=== PATIENT | male | born 1965 | race African-American/Black ===

== ENCOUNTER 2019-01-25 01:53 | Emergency (ER) | payer MEDICAID ==
[~2019-01-25] VITALS: Ht 157.5 cm; Wt 49.9 kg
[2019-01-25 03:10] LABS: Albumin 3.8 g/dL (3.4-5.0); Calcium 8.8 mg/dL (8.5-10.1); Potassium 3.7 mmol/L (3.5-5.1)
[2019-01-25 03:13] LABS: BUN/Creatinine Ratio 4.8; Bilirubin, Total 0.6 mg/dL (0.2-1.0); Total Protein 8.4 g/dL (6.4-8.2)
[2019-01-25 03:17] LABS: Carbamazepine (Tegretol) < 0.5 ug/mL (4-12); Phenytoin (Dilantin) < 0.4 ug/mL (10-20)
[2019-01-25 03:41] LABS: Basophils # (auto) 0.1 uL; Basophils % (auto) 1.3 % (0.0-2.0); Eosinophils # (auto) 0.2 uL; Eosinophils % (auto) 3.6 % (0.0-7.0); Hematocrit 35.9 % (41.0-53.0); Hemoglobin 12.2 g/dL (13.5-17.5); Lymphocytes # (auto) 1.3 uL; Lymphocytes % (auto) 29.9 % (10.0-50.0); Mean Corpuscular Hemoglobin 31.9 pg (28.0-32.0); Mean Corpuscular Hgb Conc. 34.1 g/dL (32.0-36.0); Mean Corpuscular Volume 93.5 fL (80.0-100.0); Monocytes # (auto) 0.5 uL; Monocytes % (auto) 11.7 % (0.0-12.0); Neutrophils # (auto) 2.2 uL; Neutrophils % (auto) 53.5 % (37.0-80.0); Nucleated Red Blood Cells % 0.2 %; Platelet Count (auto) 371 10^3/uL (140-450); Red Blood Cells 3.84 10^6/uL (4.5-5.90); Red Cell Distribution Width 15.2 % (11.8-14.3); White Blood Cell 4.2 10^3/uL (4.4-10.8)
[2019-01-25 03:49] LABS: Valproic Acid (Depakene) 6 ug/mL (50-100)
[2019-01-25 06:27] VITALS: BP 119/80
[2019-01-25] MEDS ORDERED: LEVETIRACETAM 500 MG TAB PO ONE (06:45)
[2019-01-25] MEDS ORDERED: PHENYTOIN SODIUM 100 MG CAP PO ONE (07:45)
[2019-01-25] MEDS ORDERED: ACETAMINOPHEN 325 MG TAB PO ONE (08:00)
== END 2019-01-25 08:27 | disposition home or self-care (01) ==
LOC: EDBD 01:59 → ER 01:59
DX: R56.9 Unspecified convulsions (principal); I25.10 Atherosclerotic heart disease of native coronary artery without angina pectoris; E78.00 Pure hypercholesterolemia, unspecified; I10 Essential (primary) hypertension; F17.210 Nicotine dependence, cigarettes, uncomplicated
CPT/HCPCS: 36415; 70450; 80053; 80156; 80164; 80185; 85025; 93005; 94761